=== PATIENT | male | born 1945 | race Caucasian/White ===

== ENCOUNTER → 2017-09-17 | Outpatient (CLI) | payer OTHER | LOC: FIMAGING 18:38 | PROVIDERS: ATTEND Orthopaedic Surgery | DX: S46.812A Strain of other muscles, fascia and tendons at shoulder and upper arm level, left arm, initial encounter (principal); M75.22 Bicipital tendinitis, left shoulder ==

== ENCOUNTER 2018-05-14 18:16 | Emergency (ER) | payer OTHER ==
--- NOTE | 2018-05-14 18:44 | EDPHY ---
H & P Time Seen by Provider: 05/14/18 18:33 HPI/ROS: CHIEF COMPLAINT: Subdural intracranial bleed HISTORY OF PRESENT ILLNESS: Patient arrives as a transfer from [place] with diagnosis of subdural hematoma. He says that he has a history of CLL for about a urine half but normal platelets, slipped on the ice because it was covered in fine powder snow on last Thursday. He says he did not actually hit his head and started developing a headache and nausea about 3 days ago. Not associated with neck or back pain or weakness or numbness in extremities or difficulty with speech or balance. He had diagnosis of CT subdural and was transferred here by private vehicle at his own request. Currently only has a mild headache and a little nausea. REVIEW OF SYSTEMS: Eye: no change in vision or double vision ENT: no sore throat or hearing symptoms Cardiac: no chest pain or syncope Pulmonary: no cough or SOB Abdomen: no vomiting, diarrhea, abdominal pain, decreased oral intake. Musculoskeletal: no back pain or neck pain Skin: no rash Neuro: HPI Constitutional: no fever : no urinary symptoms A comprehensive 10 point review of systems is otherwise negative aside from elements mentioned in the history of present illness. PAST MEDICAL HISTORY: Includes thyroid, high cholesterol, leukemia Social history: Here with and son General Appearance: Alert and conversant, cooperative. Eyes: No scleral icterus. Pupils equal reactive extraocular motion intact. ENT, Mouth: Slightly dry mucous membranes. Respiratory: Normal respiratory effort, breath sounds equal, lungs are clear to auscultation. Cardiovascular: Regular rate and rhythm. Gastrointestinal: Abdomen is soft and non tender. Neurological: Alert, face symmetric, normal motor and sensory in extremities. Speech is fluent, good asphalt paver operator strength, ambulatory. Skin: Warm and dry, no rashes. Musculoskeletal: No midline spinal tenderness. Psychiatric: Not agitated. Emergency Department course/MDM: The patient's initial CT was at 10:00 a.m. And was told by the clinic at [facility] that he should have on repeated [address] discussed and consented. CBC chemistry PT and PTT, plan for Neurosurgery consultation after CT scan. Cervical spine cleared clinically. Discussed with at 191. Right frontal subdural hematoma without shift. 1918: Dr. Serrano reviewed CT. recommends discharge with 2 week follow-up in the office. Phenergan 12.5 mg IV. Patient re-examined, he and his family state they are comfortable being discharged with outpatient follow-up. Dr. Baptiste will assist in arranging primary care follow-up on Thursday to recheck sodium. Clinically looks like he most likely has hypovolemic hyponatremia which should improve as his nausea is being treated. Phenergan and 6 hydrocodone. Smoking Status: Never smoked Constitutional: Initial Vital Signs Temperature (C) 37.1 C 05/14/18 18:21 Heart Rate 71 05/14/18 18:21 Respiratory Rate 18 05/14/18 18:21 Blood Pressure 158/89 H 05/14/18 18:21 O2 Sat (%) 96 05/14/18 18:21 O2 Delivery Mode Room Air Allergies/Adverse Reactions: No Known Allergies Allergy (Unverified 05/14/18 18:26) Home Medications: Medication Instructions Recorded Crestor 05/14/18 Flomax 05/14/18 Myrbetriq 05/14/18 Synthroid 05/14/18 Medical Decision Making - Diagnostics Imaging Results: Imaging Impressions Head CT 05/14/18 18:42 Impression: 1. Right-sided subdural hematoma, with no associated midline shift or herniation. 2. See above report for additional findings. Results called and discussed with Brayan Pritchard M.D., on May 14, 2018 at 1907. Imaging: Discussed imaging studies w/ call center recruiter Radiologist Differential Diagnosis: Differential diagnosis considered for head injury including but not limited to concussion, skull fracture, intraparenchymal contusion, subarachnoid, subdural and epidural hematoma. Consult/Admit Bed Type: [place] [id number] - Data Points Laboratory Results: Laboratory Results 05/14/18 18:41 05/14/18 18:41 05/14/18 05/14/18 05/14/18 18:41 18:41 18:41 WBC 105.69 10^3/uL H* 10^3/uL (3.80-9.50) RBC 4.56 10^6/uL 10^6/uL (4.40-6.38) Hgb 14.6 g/dL g/dL (13.7-17.5) Hct 42.3 % % (40.0-51.0) MCV 92.8 fL fL (81.5-99.8) MCH 32.0 pg pg (27.9-34.1) MCHC 34.5 g/dL g/dL (32.4-36.7) RDW 13.0 % % (11.5-15.2) Plt Count 238 10^3/uL 10^3/uL (150-400) MPV 10.2 fL fL (8.7-11.7) Neut % (Auto) Not Reported Lymph % (Auto) Not Reported [place] % (Auto) Not Reported Eos % (Auto) Not Reported Baso % (Auto) Not Reported Nucleat RBC Rel Count Not Reported Absolute Neuts (auto) Not Reported Absolute Lymphs (auto) Not Reported Absolute Monos (auto) Not Reported Absolute Eos (auto) Not Reported Absolute Basos (auto) Not Reported Absolute Nucleated RBC Not Reported Immature Gran % Not Reported Immature Gran # Not Reported Smear Review By Pending PT 13.0 SEC SEC (12.0-15.0) INR 0.96 (0.83-1.16) APTT 22.9 SEC L SEC (23.0-38.0) Sodium 128 mEq/L L mEq/L (135-145) Potassium 4.0 mEq/L mEq/L (3.5-5.2) Chloride 98 mEq/L mEq/L (97-110) Carbon Dioxide 24 mEq/l mEq/l (22-31) Anion Gap 6 mEq/L mEq/L (6-14) BUN 16 mg/dL mg/dL (7-23) Creatinine 1.3 mg/dL mg/dL (0.7-1.3) Estimated GFR 55 Glucose 95 mg/dL mg/dL (70-100) Calcium 9.2 mg/dL mg/dL (8.5-10.4) Medications Given: Discontinued Medications Hydrocodone Bitart/Acetaminophen ([place] 5/325mg Prepack#6) 1 btl TAKEHOME EDNOW ONE Stop: 05/14/18 20:21 Last Admin: 05/14/18 20:54 Dose: 1 btl Sodium Chloride (Ns) 1,000 mls @ 0 mls/hr IV EDNOW ONE; Wide Open PRN Reason: Protocol Stop: 05/14/18 19:50 Last Admin: 05/14/18 19:56 Dose: 1,000 mls Promethazine HCl (Phenergan) 12.5 mg IVP EDNOW ONE Stop: 05/14/18 19:50 Last Admin: 05/14/18 20:12 Dose: 12.5 mg Promethazine HCl (Phenergan 25 Mg Prepack #4) 1 btl TAKEHOME EDNOW ONE Stop: 05/14/18 20:21 Last Admin: 05/14/18 20:54 Dose: 1 btl Departure - Departure Disposition: Home, Routine, Self-Care Clinical Impression: Subdural hematoma Condition: Good Instructions: Hydrocodone/Acetaminophen (By mouth), Promethazine (By mouth), Subdural Hematoma (ED) Additional Instructions: Return right away for change in mentation or behavior, slurred speech, inability to walk, severe headache or vomiting. Please continue to try and eat and drink normally. No aspirin Motrin Advil or other nonsteroidals. Tylenol is okay for pain. Referrals: Chiki Serrano MD [Medical Doctor] - As per Instructions (1-2 weeks followup in the office.) Phylicia Mari MD [Primary Care Provider] - 05/17/18 (you should get your sodium rechecked on Thursday in the office.)
[2018-05-14 19:01] LABS: INR 0.96 (0.83-1.16)
[2018-05-14 19:32] LABS: PLATELET COUNT 238 10^3/uL (150-400)
[2018-05-14] MEDS ORDERED: PROMETHAZINE HCL 25 MG/ML INJ IVP ONE (19:49)
[2018-05-14] MEDS ORDERED: NS 1,000 ML IV ONE (19:49)
[2018-05-14] MEDS ORDERED: HYDROCOD/APAP 5/325 PREPACK#6 BTL TAKEHOME ONE (20:20)
[2018-05-14] MEDS ORDERED: PROMETHAZINE 25 MG PREPACK #4 BTL TAKEHOME ONE (20:20)
[2018-05-14 20:21] VITALS: BP 165/101
== END 2018-05-14 21:05 | disposition home or self-care (01) ==
DX: S06.5X0A Traumatic subdural hemorrhage without loss of consciousness, initial encounter (principal); W00.0XXA Fall on same level due to ice and snow, initial encounter; E78.00 Pure hypercholesterolemia, unspecified; E86.9 Volume depletion, unspecified; Z85.6 Personal history of leukemia
CPT/HCPCS: 70450; 96361; 96374; 99285; J2550